=== PATIENT | female | born 1945 | race Caucasian/White ===

== ENCOUNTER 2017-02-14 17:26 | Inpatient (IN) | payer MEDICARE, OTHER ==
[~2017-02-14] VITALS: Ht 149.9 cm; Wt 74.5 kg
--- NOTE | ~2017-02-14 | CN ---
Consultation Report [facility] [address] [place]. [address] NAME: FALGUNI HU : 45 STATUS : ADM IN PAT#: [id number] AGE: 71 ADM/REG DATE : 02/15/17 MR#: [id number] REPORT SERV DATE: 02/20/17 DICTATED BY: RAUL HA II DATE: 02/20/17 REPORT STATUS : Draft TRANSCRIBED BY: MODL DATE: 02/20/17 DATE OF CONSULTATION: 02/20/2017 CHIEF COMPLAINT: Status post stroke with multiple medical issues. HISTORY OF PRESENT ILLNESS: A friendly female, who is accompanied by her daughter in the hospital room. The patient reports a recent stroke. I am asked to see the patient secondary to cord compression as seen on the MRI. The patient reports some balance issues ongoing for last several months. She never was given a great explanation regarding this. PAST MEDICAL HISTORY: Seizure disorder, shingles, and hypertension. SOCIAL HISTORY: Denies alcohol or tobacco. FAMILY HISTORY: Positive for Alzheimer's. MEDICATIONS: Include vitamin B12, phenobarbital, and Dilantin. ALLERGIES: THE PATIENT REPORTS ALLERGIES TO SULFA. REVIEW OF SYSTEMS: Please see the ER triage sheet dated 02/14/2017. I have reviewed it and agree with it. PHYSICAL EXAMINATION: GENERAL: Reveals a female, in no acute distress. She is awake, alert, and oriented. Her daughter is present. CHEST: Reveals no stridor on inspiration or expiration. CARDIOVASCULAR: Regular rate when I palpate the radial pulse. EXTREMITIES: She has a negative Esperanza's in the upper extremities. She is moving all extremities, but the left is still weak in the upper and lower extremities secondary to the recent stroke. IMAGING: Cervical MRI reveals a cord compression. I would not label it as severe, but moderate without any edema within the cord. MEDICAL DECISION MAKING: Likely cervical myelopathy, mild to moderate. I do not see a reason for surgery at this point, especially given the recent stroke. I have discussed with her and her daughter that she is going to start rehab soon. She is going to also see Neurology soon for clearance for carpal tunnel surgery in the future as well as possible cervical surgery. However, we would like to see her back in the office in four to six weeks. Our office will contact the daughter regarding followup in four to six weeks. At that time, we can try and determine if the myelopathy is mild to moderate or potentially severe, but based upon the symptoms, I doubt it is severe. Consultation Report [place] [address] [place]. [address] NAME: FALGUNI HU : 45 STATUS : ADM IN PAT#: [id number] AGE: 71 ADM/REG DATE : 02/15/17 MR#: [id number] REPORT SERV DATE: 02/20/17 DICTATED BY: RAUL HA II DATE: 02/20/17 REPORT STATUS : Draft TRANSCRIBED BY: DOMENIC DATE: 02/20/17 MARTY/DOMENIC Raul Ha II, M.D. / [id number] CC: Delio Leyva M.D.
--- NOTE | ~2017-02-14 | DS ---
Discharge Summary [place] [address] [facility] [place]. [address] NAME: FALGUNI HU : 45 STATUS : DIS IN PAT#: [id number] AGE: 71 ADM/REG DATE : 02/15/17 MR#: [id number] REPORT SERV DATE: 02/22/17 DICTATED BY: JACE BARKLEY DATE: 02/21/17 REPORT STATUS : Draft TRANSCRIBED BY: DOMENIC DATE: 02/21/17 ADMISSION DATE: 02/15/2017 DISCHARGE DATE: 02/21/2017 DIAGNOSES: 1. Encephalopathy, multifactorial, resolved. 2. Dilantin and phenobarbital toxicity. 3. Acute versus subacute right frontal cerebrovascular accident. 4. Seizure disorder. 5. Severe cervical spinal stenoses. CONSULTANTS: 1. Orthopedic Surgery, Dr. Ha. 2. Neurology, Dr. Rowe. 3. Neurology consultation, Dr. Agustina Alexander. FOLLOWUP: The patient is to follow up with neurologist, Dr. Riley Sutton, in four weeks, per Neurology recommendations, and to follow with Dr. Ha, ortho-flight communications specialist, in four to six weeks, and to follow up with the primary care physician in one to two weeks after rehab for Dilantin and phenobarbital level check. Also, the patient is to have phenobarbital and Dilantin level check in seven days while at rehab and rehab physician to monitor. DISCHARGE MEDICATIONS: Aspirin 325 mg p.o. daily, Lipitor 80 mg p.o. q.h.s. for two weeks then 40 mg p.o. q.h.s., vitamin B12 of 1000 mcg p.o. daily, docusate sodium 100 mg p.o. b.i.d. p.r.n., Keppra 1000 mg p.o. q.12 hours, multivitamin p.o. daily, Dilantin 100 mg p.o. b.i.d., phenobarbital 97.2 mg p.o. q.h.s. per Neurology recommendation, Tylenol 650 mg p.o. q.4 hours p.r.n., nitroglycerin sublingual 0.4 mg p.r.n.. HOSPITALIST: Dr. Kristian Chery and Dr. Apollo Martinez and Dr. Barkley. PROCEDURES: EEG during awake and drowsy state may be considered abnormal secondary to presence of generalized spike and wave discharge, concern for seizure. Clinical correlation is otherwise recommended. IMAGIN. CT of the brain without contrast, on 02/14/2017 with a stable changes of a remote right lacunar infarct. No acute intracranial process identified. 2. MRI of the brain without contrast, 02/16/2017, showing focus of diffuse restriction in the right posterior frontal periventricular white matter with associated signal abnormality suggesting acute to subacute infarct. Old right caudate/frontal lobe white lacunar. 3. 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 Bilateral neural foraminal narrowing most pronounced at C3 through C4 and C5 through C6. 4. Carotid ultrasound no significant carotid stenosis. Discharge Summary [address] [address] NAME: FALGUNI HU : 45 STATUS : DIS IN PAT#: [id number] AGE: 71 ADM/REG DATE : 02/15/17 MR#: [id number] REPORT SERV DATE: 02/22/17 DICTATED BY: JACE BARKLEY DATE: 02/21/17 REPORT STATUS : Draft TRANSCRIBED BY: DOMENIC DATE: 02/21/17 5. Echocardiogram: Ejection fraction of 55% with normal diastolic function. Normal RV size and systolic function. Negative bubble study. No significant valve disease. Read by Dr. Sukhdev Choi. HOSPITAL COURSE: Please see H and P dictated by Dr. Kristian Chery. This is a 71-year-old female with a past medical history for seizure disorder and hypertension, being followed by the primary care physician as an outpatient and is on phenobarbital and Dilantin. According to family, the patient was recently seen at the primary care's office with levels checked and was called and informed to decrease her Dilantin level from t.i.d. to b.i.d. However, they are unsure of the levels of her Dilantin as an outpatient ordered in the office, suspecting that her levels must have been high. However, the patient was brought into the emergency department with slurred speech and generalized weakness. According to the family, the patient has been more zoned out and lethargic than usual and her Dilantin was recently decreased several days prior to her arrival to the emergency department. The also noticed over the past two weeks the patient has had a further deterioration and has been unable to stand up and they brought her to the emergency department. She was found to have supratherapeutic Dilantin and phenobarbital level of 36 and 62.6 respectively, and the patient was admitted to the hospitalist service, placed on cardiac telemetry with a Neurology consultation. The patient was initially seen by neurologist, Dr. Agustina Alexander and also Dr. Liz, hospitalist. The neurologist also ordered MRI of the brain and cervical spine with findings of acute versus subacute right frontal CVA. She was continued on aspirin. Also, the patient was found to have some severe cervical spinal stenoses and orthopedic flight communications specialist was consulted for evaluation. Although considering the patient's recent CVA, the patient at this time is not a surgical candidate and with recommendation per Ortho to await four to six weeks and to follow up in clinic at that time. The patient's encephalopathy also resolved after Dilantin and phenobarbital were held. Her Dilantin and phenobarbital levels eventually normalized. At the time of discharge, Dilantin was noted to be 12.7 and phenobarbital level 33.6. The patient was continued on Keppra at 1000 mg p.o. q.12 hours and Neurology restarted the patient's Dilantin at 100 mg p.o. b.i.d., considering that it was just recently decreased to a b.i.d. dose several days prior to her admission and also they decreased her phenobarbital level to 97.2 mg p.o. q.h.s. and recommended to continue with her Keppra at the current dose. The patient had improvement with her neurologic status and physical status with improvement of strength, noted to be eating and drinking and ambulating at the time of discharge, but still requiring sugar laboratory assistant and with recommendation of inpatient rehab by Neurology and Physical Therapy. The patient's family including and daughter also were updated and recommended to have Dilantin and phenobarbital levels to be closely monitored to avoid any recurrence of toxicity. The patient was approved for [facility] and was discharged in stable condition to follow up with specialist as an outpatient and approved for discharge by Neurology and Ortho as well. This discharge required greater than 35 minutes. AMIRA/MODL Discharge Summary [place] [address] [facility]. [address] NAME: FALGUNI HU : 45 STATUS : DIS IN PAT#: [id number] AGE: 71 ADM/REG DATE : 02/15/17 MR#: [id number] REPORT SERV DATE: 02/22/17 DICTATED BY: JACE BARKLEY DATE: 02/21/17 REPORT STATUS : Draft TRANSCRIBED BY: DOMENIC DATE: 02/21/17 Jace Barkley M.D. / [id number] CC: Delio Leyva M.D. James Jolley II, M.D. Nathan B. Wyatt, MD
--- NOTE | ~2017-02-14 | EEG ---
Electroencephalogram [facility] [address] [facility] [place]. [address] NAME: FALGUNI HU : 45 STATUS : ADM IN PAT#: [id number] AGE: 71 ADM/REG DATE : 02/15/17 MR#: [id number] REPORT SERV DATE: 02/17/17 DICTATED BY: DATE: REPORT STATUS : Draft TRANSCRIBED BY: MODL DATE: 02/17/17 NEUROLOGY EEG REPORT CLINICAL INDICATIONS: Dilantin and phenobarbital toxicity. History of seizure. DESCRIPTION: This EEG was performed using 10/20 electrode placement system. During the EEG study, the patient was noted to have symmetric background activity with predominant occipital rhythm of 7 hertz. Photic stimulation was performed with no clear driving response. The patient, during the EEG study, was noted to have 3 episodes of spike and wave discharges that was generalized. Concern for electrographic seizure that spontaneously resolved. Otherwise, the patient achieved drowsy state. No clinical seizure was otherwise observed. INTERPRETATION: This EEG study obtained during awake and drowsy state may be considered abnormal secondary to presence of generalized spike and wave discharge, concern for electrographic seizure. Clinical correlation is otherwise recommended. [facility]/MODL Turner Alexander MD / [id number] CC: MD Jimbo Raygoza M.D.
--- NOTE | ~2017-02-14 | HP ---
History And Physical [place] [address] [place]. [address] NAME: FALGUNI HU : 45 STATUS : ADM Eliseo PAT#: [id number] AGE: 71 ADM/REG DATE : 02/14/17 MR#: [id number] REPORT SERV DATE: 02/15/17 DICTATED BY: KRISTIAN MELGAR DATE: 02/14/17 REPORT STATUS : Draft TRANSCRIBED BY: MODBernadette DATE: 02/14/17 DATE OF ADMISSION: 02/14/2017 CHIEF COMPLAINT: Slurred speech, generalized weakness, unable to even stand up. HISTORY OF PRESENT ILLNESS: This is a 71-year-old female, patient of Dr. Jimbo Shipman, with a history of seizure disorder and hypertension who presents to the emergency room at [facility], with the above-mentioned complaint. History is obtained from the patient's daughter mostly, as she was unable to give any history at all. Her records on the [facility] were also reviewed. According to available data, Ms. Hu had been quite ill since about July of this year. She has had issues with her seizure disorder and has been on phenobarbital and Dilantin. According to the daughter, she is always zoned off or tuned off sometimes speaking to them and sometimes even in mid sentence. She has done this very many years according to the family, but since July of this year, things have become a little worse. She has been progressively declining, unable to do things which she used to do. She was unable to take a shower by herself, but was able to eat her food or groom herself. In the last two weeks or so, this has deteriorated further to the point she is currently unable to even stand up. In order to get to a bedside commode, the family had to literally lift her and place her on the commode. They decided to bring her to the emergency room. They also said at Dr. Shipman's office, her prior dilantin levels were subtherapeutic and they had bumped her dose up to an extra tablet every day. Instead of taking it b.i.d., she now takes it t.i.d. In the emergency room, initial workup revealed very high phenobarbital level of 62.6 and dilantin level of 36. She is quite lethargic with slurred speech and quite encephalopathic at this point. She is in no respiratory distress nor is she complaining of any other discomfort. Hospitalist Service is asked to admit her for further evaluation and treatment. At the time of my evaluation, she was arousable, followed some commands, was able to answer some basic questions. She denied any chest pain or palpitations. She had no orthopnea. She did not have any cough recently. No history of hemoptysis, night sweats, or weight loss. The family says she has not had any recent falls or loss of consciousness. No history of recent fevers or chills. No history of nausea, vomiting, diarrhea, hematemesis, hematochezia, or hematuria. No other history of recent travel or exposures other than those mentioned above. 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 PAST MEDICAL HISTORY: Significant for history of seizure disorder, shingles, and hypertension. SOCIAL HISTORY: She does not smoke, drink, or use recreational drugs. FAMILY HISTORY: Noncontributory. MEDICATIONS: Her medications at home were reviewed by me in the chart today and reordered by History And Physical [address] [address] NAME: FAGLUNI HU : 45 STATUS : ADM Eliseo PAT#: [id number] AGE: 71 ADM/REG DATE : 02/14/17 MR#: [id number] REPORT SERV DATE: 02/15/17 DICTATED BY: KRISTIAN MELGAR DATE: 02/14/17 REPORT STATUS : Draft TRANSCRIBED BY: MODL DATE: 02/14/17 in. REVIEW OF SYSTEMS: As in history of present illness. All other systems were reviewed in detail and are quite unremarkable. PHYSICAL EXAMINATION: GENERAL: This is a pleasant 71-year-old not in any acute distress. HEENT: Her head appears to be atraumatic, normocephalic. She is alert, awake, oriented as well. However, she is lethargic and needs to be aroused. Her pupils are equal, reacting to light and accommodating. External ocular muscles are intact. Membranes are moist and pink. Sclerae are nonicteric. NECK: Supple with no jugular venous distention, lymphadenopathy, or thyromegaly. LUNGS: Clear to auscultation with no wheezes, rubs, or crackles. HEART: Heart sounds were regular with no murmurs, rubs, or gallops. ABDOMEN: Soft and nontender. Bowel sounds are present. EXTREMITIES: Showed no cyanosis, clubbing, or edema. NEURO: Grossly intact. No focal deficits. She is able to move all four extremities. VITAL SIGNS: Her temperature was 97.4, pulse 62, respirations 18 a minute, blood pressure was 142/60, oxygen saturations were 98% on 2 L of oxygen via nasal cannula. LABORATORY DATA: Reviewed on the [employer] system showed a normal CMP with a blood glucose of 103. Troponin was 0.02. Alkaline phosphatase, ALT, and AST were within normal limits. CBC showed a normal white blood cell count; normal hemoglobin, hematocrit, and platelet count. Prothrombin time was 15.2 with an INR of 1.2 today. Urinalysis showed small leukocyte esterase, 2 wbc's. Films of the CT scan of her brain were reviewed by me on the PACS today and interpreted by me. Per my interpretation, there is no acute intracranial change. A 12-lead EKG done in the emergency room was reviewed and interpreted by me. There is normal sinus rhythm at a rate of 68 per minute without any acute ST-T changes. IMPRESSION: 1. Acute dilantin toxicity. 2. Phenobarbital toxicity. 3. Dysarthria. 4. Seizure disorder. 5. Shingles. 6. Generalized weakness. 7. Hypertension, uncontrolled. PLAN: We will admit Ms. Hu to the Hospitalist Service with telemetry for close monitoring. We will hold Dilantin and phenobarbital, follow levels, and restart when appropriate. We will go ahead and consult Neurology to see her in the morning as well. Meanwhile, we will give her hydralazine intravenously on an as needed basis to control her blood pressure. She will be on unfractionated heparin for DVT prophylaxis while here. I have discussed the above plans with the patient and the family. Questions were answered and History And Physical [address] [place]. [address] NAME: FALGUNI HU : 45 STATUS : ADM Eliseo PAT#: [id number] AGE: 71 ADM/REG DATE : 02/14/17 MR#: [id number] REPORT SERV DATE: 02/15/17 DICTATED BY: KRISTIAN MELGAR DATE: 02/14/17 REPORT STATUS : Draft TRANSCRIBED BY: DOMENIC DATE: 02/14/17 they are agreeable to the above recommendations. /DOMENIC Kristian Melgar M.D. / [id number] CC: MD Jimbo Raygoza M.D.
--- NOTE | ~2017-02-14 | CN ---
Consultation Report [facility] [address] [place]. [address] NAME: FALGUNI HU : 45 STATUS : ADM IN PAT#: [id number] AGE: 71 ADM/REG DATE : 02/15/17 MR#: [id number] REPORT SERV DATE: 02/15/17 DICTATED BY: DATE: REPORT STATUS : Draft TRANSCRIBED BY: MODL DATE: 02/15/17 NEUROLOGY CONSULTATION DATE OF CONSULTATION: 02/15/2017 REASON FOR CONSULT: Dilantin and phenobarbital toxicity. HISTORY OF PRESENT ILLNESS: This is a 71-year-old female with a longstanding seizure history at least for the past 46 years since the patient was . The patient was noted to have generalized tonic colonic seizure as well as what was told as zoning out episode where the patient was staring in space. The patient has not had any recent tonic colonic seizure for at least 6 months or possibly longer with the patient currently on combination of Dilantin and phenobarbital. The patient has not had any recent Neurology followup. The patient's Dilantin and phenobarbital were managed by outpatient physician where the patient's Dilantin was increased roughly 3 months ago secondary to subtherapeutic Dilantin level but the patient's phenobarbital dosage has not had any recent adjustment. The patient does have some "zoning out episode" but the frequency is unclear and according to the family, it varies. The patient, in addition, has had longstanding memory difficulties for at least several months with the patient at times having difficulties remembering things and at times having good memories. The patient has had progressive worsening of ability to care for herself, ability to walk, and for the past two weeks, required people to carry her back and forth from the bathroom and to bedside commode. The patient's symptom has been ongoing at least since December 10 where the patient was on the holiday vacation with the family and barely able to ambulate to places, otherwise the patient was also noted to have increasing lethargy over the past two weeks. No recent fevers. No complaint of chills and no complaints of focal weakness but generalized weakness was noted. The patient does have a recent CT scan of the brain in July 2016, for which the patient was noted to have previous stroke but no acute process was seen. Family is unaware of any kind of stroke symptoms. The patient's symptom has been stable since the hospitalization. No other reports of illness or medication adjustment was otherwise reported by family member. The patient does have an appointment with Dr. Riley Sutton on Friday02/18/2017, but has not been evaluated by Neurology recently. PAST MEDICAL HISTORY: The patient's past medical history is significant for seizure disorder; recent shingles in June to July 2016, which has subsequently resolved; and history of hypertension. SOCIAL HISTORY: Denies tobacco, alcohol, or recreational drug usage. FAMILY HISTORY: Significant for Alzheimer's disease in mother. HOME MEDICATIONS: The patient's home medications consist of vitamin B complex, vitamin B12, multivitamin, phenobarbital, and Dilantin. Consultation Report [address] [place]. [address] NAME: FALGUNI HU : 45 STATUS : ADM IN [facility]#: [id number] AGE: 71 ADM/REG DATE : 02/15/17 MR#: [id number] REPORT SERV DATE: 02/15/17 DICTATED BY: DATE: REPORT STATUS : Draft TRANSCRIBED BY: DOMENIC DATE: 02/15/17 ALLERGIES: THE PATIENT REPORTS ALLERGY TO SULFA MEDICATIONS. REVIEW OF SYSTEMS: The patient's review of systems is negative except for those mentioned in the HPI. PHYSICAL EXAMINATION: VITAL SIGNS: Overnight, the patient was noted to have vital signs with T-max of 98.1, heart rate of 62 to 75, respirations of 12 to 18, and blood pressure of 140 to 181 over 60 to 74. GENERAL: The patient is well developed, well nourished, in no acute distress. CARDIOVASCULAR EXAMINATION: Regular rate and rhythm. No carotid bruits were otherwise auscultated. PULMONARY: Examination was clear to auscultation bilaterally. NEUROLOGICAL EXAMINATION: Generally the patient is alert, oriented to person, place, year, and month. Mild psychomotor retardation was noted with decreased attention span. The patient was noted to have some difficulties with the insight regarding the patient's illness, otherwise, difficulties performing registration and recall. Cranial nerves 2 through 12, pupils equal, round, and reactive to light. Extraocular eye movement was noted to be intact with intact [id number]-[id number] response. Symmetrical facial expression. Midline tongue. Normal palatal movement. Mild decreased hearing in bilateral ears with the patient reports symmetrical sensation bilaterally. The patient was noted to have movement in bilateral upper extremity against gravity with giveaway weakness as well as myoclonus noted, worse in the left upper extremity. The patient was noted to have decreased test preparer strength in the right upper extremity, roughly 4/5, compared to 5/5 test preparer strength in the left upper extremity. Ataxia in the left upper extremity. Normal [id number] examination on the right with the patient reports decreased sensation in bilateral upper extremities. Deep tendon reflex was trace in bilateral upper extremity and bilateral patella. The patient demonstrated proximal weakness in bilateral upper extremity; 1/5 bilateral lower extremity strength at the time of evaluation. No clear muscle tenderness to palpation at the time of evaluation. Gait was not evaluated secondary to weakness and patient's confusion. LABORATORY STUDY: Demonstrates sodium 140, potassium 3.8, chloride 106, bicarb 26, BUN of 13, creatinine of 0.72, glucose of 111, calcium of 8.7, and magnesium 2.0. The patient was noted to have home Dilantin level of 36 and phenobarbital of 62.6. White blood cell count of 4.5, hemoglobin of 12.7, hematocrit of 37.0, and platelet count of 156. CT scan of the brain was reviewed. No acute process was seen. Generalized atrophy was noted. IMPRESSION: 1. Encephalopathy. 2. Dilantin toxicity. 3. Phenobarbital toxicity. The patient was noted to have elevated Dilantin and phenobarbital level. We will hold both Dilantin and phenobarbital at this time. We will check MRI of the brain without contrast as well as perform EEG on 02/17/2017, otherwise, we will check serum CPK, vitamin B12, folate, thiamine, TSH, free T4, sedimentation rate, CRP level with morning labs. We will also obtain PT/OT to evaluate and treat. Consultation Report [place] [id number] [facility] [place]. [address] NAME: FALGUNI HU : 45 STATUS : ADM IN [facility]#: [id number] AGE: 71 ADM/REG DATE : 02/15/17 MR#: [id number] REPORT SERV DATE: 02/15/17 DICTATED BY: DATE: REPORT STATUS : Draft TRANSCRIBED BY: MODL DATE: 02/15/17 RECOMMENDATIONS: 1. PT/OT. 2. MRI of the brain and C-spine without contrast. 3. EEG. 4. Serum CPK, thiamine, vitamin B12, folate, TSH, free T4, sedimentation rate, CRP, Dilantin and phenobarbital level with morning labs. 5. We will continue to hold Dilantin and phenobarbital for now. [facility] Turner Alexander MD / [id number] CC: MD Jimbo Raygoza M.D.
[~2017-02-14 17:26] MED LIST: D100 PO; T PO; [UNRECOGNIZED DRUG - CODE] PO
[2017-02-14 18:14] LABS: BASOPHILS 0.4 %; BASOPHILS ABSOLUTE 0.02 10/3/uL (0.0-0.16); EOSINOPHILS 0.4 %; EOSINOPHILS ABSOLUTE 0.02 10/3/uL (0.0-0.53); ER CBC TAT 0 Hrs 05 Mins; HEMOGLOBIN 12.7 g/dL (12.0-16.0); IMMATURE GRANULOCYTES 0.2 %; IMMATURE GRANULOCYTES ABSOLUTE 0.01 10/3/uL (0.0-0.11); LYMPHOCYTES 28.9 %; LYMPHOCYTES ABSOLUTE 1.31 10/3/uL (0.67-4.30); MANUAL DIFF NO %; MEAN CORPUS HGB CONC 34.3 g/dL (32.0-36.0); MEAN CORPUSCULAR HEMOGLOB 31.4 pg (26.0-34.0); MEAN CORPUSCULAR VOLUME 91.4 fL (80-100); MEAN PLATELET VOLUME 9.2 fL (9.2-13.0); MONOCYTES 8.6 %; MONOCYTES ABSOLUTE 0.39 10/3/uL (0.21-1.20); NEUTROPHILS 61.5 %; NEUTROPHILS ABSOLUTE 2.79 10/3/uL (2.02-8.40); PLATELET COUNT 156 10/3/uL (150-400); RBC DISTRIBUTION WIDTH 13.9 % (12.0-16.0); RED CELL COUNT 4.05 10/6/uL (4.0-5.6); WHITE BLOOD CELLS 4.5 10/3/uL (4.5-10.5)
[2017-02-14 18:25] LABS: INTERNATIONAL NORMAL RATI 1.2 UNITS (-); PARTIAL THROMBO TIME 34.4 SEC (22.5-37.2); PROTIME (NOT ORD) 15.2 SEC (12.0-14.5)
[2017-02-14 18:32] LABS: ALBUMIN 3.7 G/DL (3.5-5.0); BUN (BLOOD UREA NITROGEN) 18 MG/DL (6-23); CALCIUM, SERUM 8.7 MG/DL (8.5-10.4); CHLORIDE, SERUM 105 MMOL/L (96-112); CO2 (CARBON DIOXIDE) 27 MMOL/L (24-34); CREATININE 0.81 MG/DL (0.55-1.02); GFR AFRICAN AMERICAN 85 ML/MIN (>=60); GFR NON AFRICAN AMERICAN 73 ML/MIN (>=60); POTASSIUM, SERUM 4.4 MMOL/L (3.5-5.3); SGOT(AST) 11 U/L (5-40); SGPT(ALT) 18 U/L (5-65); SODIUM, SERUM 138 MMOL/L (135-148); TOTAL BILIRUBIN 0.2 MG/DL (0-1.2); TOTAL PROTEIN 7.5 G/DL (6.0-8.5); TROPONIN I <0.02 NG/ML (<0.05)
[2017-02-14 18:34] LABS: ALKALINE PHOSPHATASE 98 U/L (45-117); GLOBULIN 3.8 G/DL (2.5-4.1); GLUCOSE, SERUM 103 MG/DL (60-99)
[2017-02-14] MEDS ORDERED: PB60 PO (20:36)
[2017-02-14] MEDS ORDERED: VITAMIN B PO (20:39)
[2017-02-14] MEDS ORDERED: CYANO1000T PO (20:39)
[2017-02-14] MEDS ORDERED: MULTIVIT/MIN PO (20:39)
[2017-02-14] MEDS ORDERED: PHENOBARB97.2 MG PO (20:39)
[2017-02-14] MEDS ORDERED: D100 PO (20:40)
[2017-02-14 21:27] LABS: PHENOBARBITAL 62.6 MCG/ML (15.0-40.0)
[2017-02-14 22:09] LABS: ASCORBIC ACID (UR NOT ORDER) NEG (NEG); BILIRUBIN, URINE NEGATIVE (NEG); ER URINALYSIS TAT 0 Hrs 52 Mins; KETONE, URINE NEGATIVE (NEG); LEUKOCYTE ESTERASE(NOT OR NEG (NEG); NITRITE (URINE) NEG (NEG); WBC (NOT ORDERED) (RFLEX) 2 (0-5)
[2017-02-15 06:58] LABS: CALCIUM, SERUM 8.7 MG/DL (8.5-10.4); CHLORIDE, SERUM 106 MMOL/L (96-112); CO2 (CARBON DIOXIDE) 26 MMOL/L (24-34); CREATININE 0.72 MG/DL (0.55-1.02); GFR AFRICAN AMERICAN 98 ML/MIN (>=60); GFR NON AFRICAN AMERICAN 84 ML/MIN (>=60); GLUCOSE, SERUM 111 MG/DL (60-99); PHOSPHORUS, SERUM 3.5 MG/DL (2.5-4.5); POTASSIUM, SERUM 3.8 MMOL/L (3.5-5.3); SODIUM, SERUM 140 MMOL/L (135-148)
[2017-02-15 06:59] LABS: BUN (BLOOD UREA NITROGEN) 13 MG/DL (6-23)
[2017-02-15 12:01] LABS: FREE T4 0.67 NG/DL (0.76-1.46)
[2017-02-16 06:30] LABS: BUN (BLOOD UREA NITROGEN) 10 MG/DL (6-23); CALCIUM, SERUM 8.9 MG/DL (8.5-10.4); CHLORIDE, SERUM 105 MMOL/L (96-112); CO2 (CARBON DIOXIDE) 25 MMOL/L (24-34); CPK 45 U/L (0-200); CREATININE 0.79 MG/DL (0.55-1.02); GFR AFRICAN AMERICAN 87 ML/MIN (>=60); GFR NON AFRICAN AMERICAN 75 ML/MIN (>=60); GLUCOSE, SERUM 104 MG/DL (60-99); POTASSIUM, SERUM 4.2 MMOL/L (3.5-5.3); SODIUM, SERUM 137 MMOL/L (135-148)
[2017-02-16 06:32] LABS: DILANTIN (PHENYTOIN) 31.5 MCG/ML (10.0-20.0); FOLATE 15.5 NG/ML (>5.2); PHENOBARBITAL 56.8 MCG/ML (15.0-40.0)
[2017-02-16 06:33] LABS: C-REACTIVE PROTEIN 57.3 MG/L (<8.0)
[2017-02-17 05:57] LABS: A/G RATIO 0.9 (0.7-1.9); ALBUMIN 3.3 G/DL (3.5-5.0); ALKALINE PHOSPHATASE 86 U/L (45-117); BUN (BLOOD UREA NITROGEN) 16 MG/DL (6-23); CHLORIDE, SERUM 104 MMOL/L (96-112); CHOL/HDL RATIO(NOT ORDER) 3.4 (0-5); CHOLESTEROL 188 MG/DL (< 200); CO2 (CARBON DIOXIDE) 24 MMOL/L (24-34); CREATININE 0.82 MG/DL (0.55-1.02); DILANTIN (PHENYTOIN) 24.8 MCG/ML (10.0-20.0); GFR AFRICAN AMERICAN 83 ML/MIN (>=60); GFR NON AFRICAN AMERICAN 72 ML/MIN (>=60); GLOBULIN 3.6 G/DL (2.5-4.1); GLUCOSE, SERUM 106 MG/DL (60-99); HDL CHOLESTEROL 56 MG/DL (> 49); LDL CHOLESTEROL 90 MG/DL (< 130); NON-HDL CHOLESTEROL 132 MG/DL (< 160); PHENOBARBITAL 49.9 MCG/ML (15.0-40.0); POTASSIUM, SERUM 4.3 MMOL/L (3.5-5.3); SGOT(AST) 12 U/L (5-40); SGPT(ALT) 18 U/L (5-65); SODIUM, SERUM 138 MMOL/L (135-148); TOTAL BILIRUBIN 0.5 MG/DL (0-1.2); TOTAL PROTEIN 6.9 G/DL (6.0-8.5); TRIGLYCERIDE 213 MG/DL (< 150)
[2017-02-17 07:31] LABS: GLYCOHEMOGLOBIN (HbA1c) 5.3 % (4.7-6.1)
[2017-02-19 07:01] LABS: PHENOBARBITAL 43.7 MCG/ML (15.0-40.0)
[2017-02-19 16:28] LABS: THIAMINE 10.7 nmol/L (()); THIAMINE MONOPHOSPHATE 4.9 nmol/L (())
[2017-02-20 08:46] LABS: DILANTIN (PHENYTOIN) 12.7 MCG/ML (10.0-20.0)
[2017-02-20 10:50] LABS: PHENOBARBITAL 33.6 MCG/ML (15.0-40.0)
== END 2017-02-21 18:44 | DRG 64 ==
LOC: ER 17:26 → 1SO 22:27
PROVIDERS: Emergency Medicine; Internal Medicine; Internal Medicine Pulmonary Disease; Nurse Practitioner; Psychiatry & Neurology Neurology
DX: I63.511 Cerebral infarction due to unspecified occlusion or stenosis of right middle cerebral artery (principal); G92 Toxic encephalopathy; B02.9 Zoster without complications; M48.02 Spinal stenosis, cervical region; G40.909 Epilepsy, unspecified, not intractable, without status epilepticus; R53.1 Weakness; R47.1 Dysarthria and anarthria; I10 Essential (primary) hypertension; T42.3X5A Adverse effect of barbiturates, initial encounter; T42.0X5A Adverse effect of hydantoin derivatives, initial encounter; Z79.899 Other long term (current) drug therapy; Z88.2 Allergy status to sulfonamides
CPT/HCPCS: 70450; 70551; 71010; 72141; 80048; 80053; 80061; 80184; 80185; 81001; 82140; 82550; 82607; 82746; 83036; 83735; 84100; 84425; 84439; 84443; 84484; 85025; 85610; 85652; 85730; 86140; 93005; 93880; 95816; 97110-GP; 97116-GP; 97163-GP; 97166-GO; 97535-GO; 99285; A9270-GY; C8929; G8978-CK-GP; G8979-CJ-GP; G8987-CL-GO; G8988-CK-GO; J1953; J2405; Q9957